=== PATIENT | male | born 2000 | race Caucasian/White ===

== ENCOUNTER 2022-02-10 14:56 | Outpatient (CLI) | payer BC, SELFPAY ==
[2022-02-10 22:45] LABS: SARS PCR* Negative SARS-CoV-2 (Negative)
== END 2022-02-10 14:57 | disposition home or self-care (01) ==
LOC: KYNREF 14:57
PROVIDERS: PCP Pediatrics; Visit Provider Nurse Practitioner Family
DX: Z20.822 Contact with and (suspected) exposure to COVID-19 (principal); J32.9 Chronic sinusitis, unspecified
CPT/HCPCS: 87635